=== PATIENT | male | born 1945 | race Hispanic/Latino ===

== ENCOUNTER → 2020-05-15 | Outpatient (CLI) | payer MEDICARE, OTHER ==
[~2020-05-15] MED LIST: ALBUTEROL SULFATE HFA 8GM INHALATION AEROSOL INH ONE
== END ==
LOC: RESP 08:06
PROVIDERS: ATTEND Specialist
DX: J84.112 Idiopathic pulmonary fibrosis (principal)
CPT/HCPCS: 93306; 94060; 94664; 94727; 94729

== ENCOUNTER → 2020-05-23 | Outpatient (CLI) | payer MEDICARE, OTHER ==
--- NOTE | 2020-05-24 10:06 | Diagnostic Imaging Report ---
CT of the chest, without contrast, 05/24/2020. History: Idiopathic pulmonary fibrosis. Question remote history of Covid, currently testing negative. Comparison: None available. Technique: Multidetector CT scanning of the chest was performed from the level of the apices to the upper abdomen without contrast. Coronal and sagittal multiplanar reformations were obtained. RADIATION DOSE: Total DLP: 567 mGy*cm Dose modulation, iterative reconstruction, and/or weight based adjustment of the mA/kV was utilized to reduce the radiation dose to as low as reasonably achievable. Discussion: Evaluation is limited without IV contrast. Chest: The heart, aorta, and pulmonary vessels are normal in size. There is calcification of the coronary arteries. A mildly enlarged right paratracheal node is present measuring 1.2 cm in short axis diameter. Multiple additional subcentimeter nodes are scattered throughout the mediastinum. There are mild bilateral subpleural irregular reticular opacities with slight basilar predominance, without bronchiectasis or honeycombing. Scattered peripheral ground glass opacities are also present throughout both lungs. A calcified granuloma is noted in the left lower lobe. There is no focal consolidation or effusion. Limited evaluation of the upper abdomen shows normal adrenal glands. Multiple small cysts are scattered throughout the liver. Bones and soft tissues: No acute abnormality. IMPRESSION: Mild bilateral pulmonary fibrosis with patchy peripheral ground glass opacities which may represent acute exacerbation of interstitial lung disease, superimposed but atypical/Covid pneumonia cannot be excluded. Signed by: Rolando Limon on 05/24/2020 10:02 AM
== END ==
LOC: CT 15:35
PROVIDERS: ATTEND Specialist
DX: J84.112 Idiopathic pulmonary fibrosis (principal)
CPT/HCPCS: 71250